=== PATIENT | female | born 1975 | race Caucasian/White ===

== ENCOUNTER → 2016-07-11 | Outpatient (CLI) | payer BC ==
[~2016-07-11] MED LIST: ASPIRIN 81M81 MG/TA2 PO; ASPIRIN E.C. 8181 MG PO; LORTAB 5/500 501 TAB PO; PRENATAL1 TA1 PO; ZANTAC 150150 MG PO
== END ==
LOC: COL.RAD 10:30
DX: R14.0 Abdominal distension (gaseous) (principal); R53.83 Other fatigue; N92.6 Irregular menstruation, unspecified

== ENCOUNTER → 2020-06-01 | Outpatient (CLI) | payer BC | LOC: MC.RAD 12:00 | DX: Z12.31 Encounter for screening mammogram for malignant neoplasm of breast (principal) ==

== ENCOUNTER 2023-06-19 08:59 | Day surgery (SDC) | payer BC ==
[~2023-06-19] VITALS: Ht 7.6 cm; Wt 65.5 kg
[~2023-06-19 08:59] MED LIST changes: +LR 1,000 ML IV SCH; +Ondansetron 4 MG/2 ML VIAL IV PRN
[2023-06-19] MEDS ORDERED: PROGESTERONE PO (10:09)
[2023-06-19] MEDS ORDERED: TESTOSTERONE IM (10:13)
[2023-06-19] MEDS ORDERED: MAGNESIUM PO (10:16)
[2023-06-19] MEDS ORDERED: PROBIOTIC PO (10:16)
[2023-06-19 10:19] VITALS: BP 112/85; PULSE 60; TEMP 97.5
[2023-06-19] MEDS ORDERED: Lidocaine PF 2% (20 MG/ML) 5 ML VIAL ONE (10:43)
[2023-06-19 11:50] VITALS: BP 97/63; PULSE 63; TEMP 97.5
[2023-06-19 12:00] VITALS: BP 97/70; PULSE 54
[2023-06-19 12:15] VITALS: BP 110/70; PULSE 60
[2023-06-19 12:30] VITALS: BP 117/78; PULSE 57
--- NOTE | 2023-06-19 12:37 | NUR ---
1150- PATIENT RETUR[place] [facility] [place]. PT AWAKE AND ALERT. RESPIRATIONS UNLABORED. AMBULATED TO RECLINER CHAIR WITH 2:1 SBA. PT DENIES NAUSEA OR ABDOMINAL PAIN. HOOKED UP TO MONITOR AND VS OBTAINED. CALL LIGHT AT SIDE AND PRESENT. 1157- PATIENT TOLERATING JELLO AND COFFEE WITHOUT NAUSEA OR DIFFICULTY SWALLOWING. 1209- D/C INSTRUCTIONS REVIEWED WITH PATIENT. PT VERBALIZED UNDERSTANDING AND A COPY OF INSTRUCTIONS PROVIDED IN D/C FOLDER. 1220- PATIENT DRESSES SELF. 1224- DR. MANCUSO IN ROOM SPEAKING WITH PATIENT. 1237- PATIENT DISCHARGED FROM UNIT VIA W/C TO A PERSONAL VEHICLE. PT LEFT HOSPITAL IN STABLE CONDITION.
== END 2023-06-19 12:37 | disposition home or self-care (01) ==
LOC: SDCO 08:59
DX: Z12.11 Encounter for screening for malignant neoplasm of colon (principal); D12.5 Benign neoplasm of sigmoid colon; D12.2 Benign neoplasm of ascending colon
CPT/HCPCS: J2704; J7120